=== PATIENT | male | born 1955 | race African-American/Black ===

== ENCOUNTER → 2017-02-21 | Outpatient (CLI) | payer BC ==
[~2017-02-21] MED LIST: CLEOCIN HCL150 MG PO; COLACE 100 MG100 MG PO; CYCLOBENZAPRINE10 MG PO; DEXAMETHASONE 22 M1 PO; HYDROCODONE-AP1 EAC6 PO; NAPROSYN500 MG PO; NEOSPORIN OINTM15 GM TP; NEURONTIN 300300 M1 PO; NORCO 5-325 TA1 EACH PO; PRILOSEC20 MG PO; ROBAXIN 750 MG750 M1 PO; ZANTAC 150MG T150 MG PO; ZOCOR40 MG PO
== END ==
LOC: ULTRA 07:50
DX: R10.9 Unspecified abdominal pain (principal); R63.4 Abnormal weight loss

== ENCOUNTER → 2017-02-21 | Outpatient (CLI) | payer OTHER | LOC: CAT 07:44 | DX: Z13.6 Encounter for screening for cardiovascular disorders (principal) ==

== ENCOUNTER 2017-07-13 05:41 | Emergency (ER) | payer BC, OTHER ==
[~2017-07-13] VITALS: Ht 182.9 cm; Wt 76.2 kg
[2017-07-13] MEDS ORDERED: NORCO 5-325 TA1 EACH PO (06:32)
[2017-07-13] MEDS ORDERED: TRAMADOL 50 MG50 MG PO (06:46)
[2017-07-13 06:55] VITALS: BP 147/79
== END 2017-07-13 07:01 | disposition home or self-care (01) ==
LOC: ER 05:41
DX: S62.631A Displaced fracture of distal phalanx of left index finger, initial encounter for closed fracture (principal); K21.9 Gastro-esophageal reflux disease without esophagitis; E78.00 Pure hypercholesterolemia, unspecified; Z90.49 Acquired absence of other specified parts of digestive tract; Z88.8 Allergy status to other drugs, medicaments and biological substances; W31.0XXA Contact with mining and earth-drilling machinery, initial encounter; Y93.89 Activity, other specified; Y92.89 Other specified places as the place of occurrence of the external cause; Y99.8 Other external cause status

== ENCOUNTER → 2021-06-15 | Outpatient (CLI) | payer OTHER ==
[~2021-06-15] MED LIST changes: +COZAAR 25 MG TA25 M1 PO; +LIPITOR40 MG PO; +NORVASC5 M1 PO; +TRAMADOL 50 MG50 MG PO
== END ==
LOC: LAB 05:54
PROVIDERS: ATTEND Student in an Organized Health Care Education/Training Program
DX: Z01.812 Encounter for preprocedural laboratory examination (principal); Z20.822 Contact with and (suspected) exposure to COVID-19

== ENCOUNTER → 2021-06-17 | Outpatient (CLI) | payer OTHER ==
[~2021-06-17] VITALS: Ht 182.9 cm; Wt 79.4 kg
--- NOTE | 2021-06-19 14:11 | P ---
[facility] [place] [address] PROCEDURE REPORT Name: MATTHEW GOMEZ [place] Room #: REG CL MemoTanaDarci.#: [id number] Admission: 06/17/21 Attend Phys: Rocael Boles Discharge: Date of : 51 Report #: [id number] THIS REPORT FOR: cc: Fredo Carrion Donald L. DO McElhinney, Christian C. MD ~ cc: Fredo Carrion DO DATE OF SERVICE: 06/17/2021 PROCEDURE PERFORMED: Colonoscopy with bleeding control and polypectomy. HISTORY OF PRESENT ILLNESS: The patient is a 66-year-old male with a history of Hemoccult positive stool on recent routine physical. He denies any obvious blood in his stools. He does have a family history of colon cancer in his father. He denies any obvious bright red blood per rectum or melena. DESCRIPTION OF PROCEDURE: The risks and benefits of the procedure were explained to the patient, those risks including but not limited to bleeding, perforation and the risk of sedation. He understood these risks and gave informed consent. Sedation was given using propofol per anesthesia. Next, a digital rectal exam was initially performed, which was normal. Next, using a standard Olympus colonoscope, the scope was placed in the patient's anus and advanced under direct vision to the cecum. The overall prep was excellent. The cecum and ileocecal valve were normal in appearance. 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 Due to his history of heme-positive stools, I proceeded with bipolar cautery, using a 7-Vincentian catheter of the AVMs. No evidence of bleeding after cauterization. Also, in the ascending colon was a 6 mm sessile polyp. This was removed by snare cautery. Transverse and descending colon were normal. In the sigmoid colon, a 5 mm sessile polyp was noted, also removed by snare cautery. The rectal mucosa was normal. On retroflexion, small nonbleeding internal hemorrhoids noted. Scope was then withdrawn and the procedure terminated. The patient tolerated the procedure well. IMPRESSION: 1. 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 2. Two small colonic polyps. 3. Small internal hemorrhoids. No evidence of bleeding on exam today. RECOMMENDATIONS: 1. Await biopsy results. 2. Repeat colonoscopy in [address] [address] PROCEDURE REPORT Name: GOMEZMATTHEW SEATTLE Room #: REG CLJeremy Fisher#: [id number] Admission: 06/17/21 Attend Phys: Rocael Boles Discharge: Date of : 51 Report #: [id number] Thank you for allowing me to participate in his care. <ELECTRONICALLY SIGNED> By: Rocael Landeros MD 06/19/21 1411 0837 1025 Rocael Landeros MD /lashell
--- NOTE | 2021-06-19 15:07 | PATH ---
[facility] [place] [address] PATHOLOGY RPT PROCEDURE Name: MARC CROW [place] Room #: REG CL M.R.#: [id number] Admission: 06/17/21 Date of : 51 Discharge: Report #: [id number] Path Case #: [id number] [facility] Accession Number: [id number] . 01 Material submitted: . PART A: colon - ASCENDING COLON POLYP. Modifiers: ascending PART B: sigmoid colon - SIGMOID COLON POLYP . 01 Clinical history: . COLONOSCOPY BLOOD IN STOOL, HX OF POLYPS, HX OF COLON CANCER FAMILY, AVM OF COLON . 02 Diagnosis: A. Ascending colon polyp, polypectomy: - Fragment of colonic mucosa with focal hyperplastic changes. - Negative for adenomatous change or malignancy. . B. Sigmoid colon polyp, polypectomy: - Tubular adenoma. - Negative for high-grade dysplasia or malignancy. . (ANK:lily; 06/19/2021) [facility]BR 06/19/2021 1104 Local . 02 Electronically signed: . Rosana Elder MD, Pathologist NPI- [id number] . 01 Gross description: . A. The specimen is received in formalin, labeled "Marc Crow, ascending colon polyp". Received is a segment of pale chahal tissue measuring 0.4 cm in maximum dimensions. The specimen is submitted entirely in cassette A1. . B. The specimen is received in formalin, labeled "Marc Crow, sigmoid colon polyp". Received is a segment of pale chahal tissue measuring 0.6 cm in maximum dimensions. The specimen is submitted entirely in cassette B1.([facility]; 06/18/2021) [facility] 06/18/2021 1120 Local . 02 Pathologist provided ICD-10: D12.5, K92.1, Z86.010, Z80.0 . 02 CPT . 244445, 206906 Specimen Comment: A courtesy copy of this report has been sent to [phone], [phone], [place] [address] PATHOLOGY RPT PROCEDURE Name: MARC CROW [place] [facility] #: [facility]Co[facility] HospitalT[facility] [id number] Admission: 06/17/21 Date of : 51 Discharge: Report #: [id number] Path Case #: [id number] Specimen Comment: [id number] Specimen Comment: Report sent to / DR GRAY Performed at: [address] [facility] [address], [place], [place] [id number] MD Marlo Garrido MD Phone: [phone] Performed at: [address] [id number] MD Rosana Elder MD Phone: [phone]
== END | disposition home or self-care (01) ==
LOC: GI 07:29
PROVIDERS: ATTEND Specialist
DX: R19.5 Other fecal abnormalities (principal); D12.5 Benign neoplasm of sigmoid colon; K64.8 Other hemorrhoids; I10 Essential (primary) hypertension; E78.00 Pure hypercholesterolemia, unspecified; K21.9 Gastro-esophageal reflux disease without esophagitis; Z98.890 Other specified postprocedural states; Z79.899 Other long term (current) drug therapy; Z80.0 Family history of malignant neoplasm of digestive organs; Z90.49 Acquired absence of other specified parts of digestive tract; Z88.8 Allergy status to other drugs, medicaments and biological substances
CPT/HCPCS: 62110; 62900